=== PATIENT | female | born 1975 | race Hispanic/Latino ===

== ENCOUNTER 2024-11-22 21:16 | Emergency (ER) | payer SELFPAY ==
[~2024-11-22] VITALS: Ht 157.5 cm; Wt 59.0 kg
[2024-11-22] MEDS ORDERED: SODIUM CHLORIDE 0.9% 1000ML 1,000 ML IV SCH (21:30)
[2024-11-22] MEDS: DIPHENHYDRAMINE HCL 25 MG CAP PO ONE (22:45)
[2024-11-22] MEDS: METOCLOPRAMIDE HCL 10 MG/2ML VIAL IV ONE (22:46)
[2024-11-22] MEDS: SODIUM CHLORIDE 0.9% 1000ML 1,000 ML IV ONE (22:46)
[2024-11-22] MEDS: KETOROLAC TROMETHAMINE 30 MG/ML VIAL IV STA (22:47)
[2024-11-23 00:02] VITALS: PULSE 75; RESP 16; TEMP 98.3
[2024-11-23 00:23] VITALS: BP 102/62; O2SAT 99
== END 2024-11-23 00:24 | disposition home or self-care (01) ==
LOC: EDSEX 21:29 → ER 21:29
DX: R51.9 Headache, unspecified (principal); R11.2 Nausea with vomiting, unspecified
CPT/HCPCS: 70450; 99284; J1885; J2765